=== PATIENT | female | born 1995 | race Caucasian/White ===

== ENCOUNTER 2021-06-19 08:41 | Emergency (ER) | payer OTHER, SELFPAY ==
[2021-06-19 08:52] VITALS: BP 155/83; PULSE 89; RESP 20; TEMP 36.6; O2SAT 99; BMI 27.2
--- NOTE | 2021-06-19 09:37 | ED.URI ---
HPI - URI/Sore Throat General Chief Complaint: Upper Respiratory Symptoms Stated Complaint: Sinus Infection Time Seen by Provider: 06/19/21 09:16 History of Present Illness HPI Narrative: Patient who had COVID 2 weeks ago complains of continued mild cough and congestion and runny nose Related Data Previous Rx's Medication Instructions Recorded azithromycin 250 mg tablet See Rx Instructions .ROUTE 06/19/21 (Zithromax Z-Demetrio) .COMPLEX #6 tab fluticasone propionate 50 2 spray INTRANASAL DAILY #16 g 06/19/21 mcg/actuation nasal spray,suspension (24 Hour Allergy Relief) prednisone 20 mg tablet 60 mg PO DAILY 3 Days #9 tab 06/19/21 Allergies Allergy/AdvReac Type Severity Reaction Status Date / Time No Known Allergies Allergy Unverified 03/04/20 16:43 Review of Systems Review of Systems: Positive nasal congestion runny nose and mild cough Negative no fever no chills no dizziness no weakness no stiff neck no chest pain no shortness of breath no abdominal pain no nausea or vomiting Yes all other systems are reviewed and are negative COUNTS INCLUDE 234 BEDS AT THE [facility] Past Medical History Source: nursing notes reviewed Medical History (Updated 06/19/21 @ 09:39 by QUIQUE Logan) No known health problems Social History Social History Advance Directives: No Advance Directives Information Provided: No Patient : No Physical Exam Vital Signs: Vital Signs: Last Vital Signs Temp 97.9 F 06/19/21 08:52 Pulse 89 06/19/21 08:52 Resp 20 06/19/21 08:52 BP 155/83 H 06/19/21 08:52 Pulse Ox 99 06/19/21 08:52 BMI result Body Mass Index 27.2 General appearance no distress Eyes no redness or discharge The nose there is very mild tenderness over the sinuses and mild congestion The pharynx is clear with no redness swelling or exudate Neck is supple Chest clear to auscultation bilateral Extremities full range of motion x4 Course Course Course Narrative: Patient refused a COVID test as she was positive 2 weeks ago and does not want another test She believes she has had sinusitis before and this is just like get so was given a prescription for Zithromax She was advised it is likely to be viral or inflammatory more likely than bacterial so she is put on prednisone for a couple of days and advised use decongestants and Flonase Well-appearing patient was discharged Discharge Plan Discharge Clinical Impression: Sinusitis Patient Disposition: Home, Self-Care Additional Instructions: We are treating for possible sinusitis, but also for possible allergic or inflammatory condition and the sinuses So we are treating with antibiotic as well as steroid For symptom relief Sudafed which is available [id number] can be very helpful for congestion, and at night it is safe to take the Afrin 12 hour nose spray which usually relieves congestion for overnight Follow with her doctor Return to the ER any time any worse condition or any concerns Prescriptions: New prednisone 20 mg tablet 60 mg PO DAILY 3 Days Qty: 9 RF: 0 azithromycin [Zithromax Z-Demetrio] 250 mg tablet See Rx Instructions .ROUTE .COMPLEX Qty: 6 RF: 0 fluticasone propionate [24 Hour Allergy Relief] 50 mcg/actuation spray,suspension 2 spray intranasal DAILY Qty: 16 RF: 0 Interventions: ED Discharge Assessment Last Done: 06/19/21 10:01 Discharge Date/Time: 06/19/21 10:02
== END 2021-06-19 10:02 | disposition home or self-care (01) ==
PROVIDERS: Emergency Provider Emergency Medicine
DX: J32.9 Chronic sinusitis, unspecified (principal)
CPT/HCPCS: 99283